=== PATIENT | male | born 1955 | race Caucasian/White ===

== ENCOUNTER 2016-10-10 18:12 | Inpatient (IN) | payer MEDICARE ==
[~2016-10-10] VITALS: Ht 175.3 cm; Wt 88.9 kg
[~2016-10-10 18:12] MED LIST: ASPIRIN EC81 MG PO; ATROVENT (00.2 MG/ML NEB; BACLOFEN 10MG T10 MG PO; CERTAGEN1 EACH PO; DULCOLAX5 MG PO; FEOSOL325 MG PO; FLOMAX 0.4 MG0.4 MG PO; KEPPRA500 MG PO; LAXATIVE SUPPOS10 MG PR; LOPRESSOR25 MG PO; MAALOX ADVANCE355 ML PO; MILK OF MA400 MG/5 M PO; MUCINEX 600MG600 MG PO; NEURONTIN300 M1 PO; OXY-IR 5MG5 MG PO; PAXIL40 MG PO; PLAVIX75 MG PO; PRAVACHOL20 MG PO; PRILOSEC20 MG PO; PROVENTIL HFA6.7 GM INH; SENOKOT-S TABL1 EACH PO; XARELTO10 MG PO; XOPENEX (11.25 MG/3 NEB; [UNRECOGNIZED DRUG - OTHER]
[2016-10-10 21:46] LABS: BASOPHIL 0.4 % (0-2); EOSINOPHIL 0.4 % (0-5); HCT 40.5 % (42.0-52.0); LYMPHOCYTE 6.8 % (15-48); MCH 31.3 pg (25.0-31.0); MCHC 34.6 g/dL (32.0-36.0); MCV 90.6 fL (78.0-100.0); MONOCYTE 3.7 % (0-12); NEUTROPHIL 88.7 % (41-80); PLT 174 K/uL (150-400); RBC 4.47 M/uL (4.70-6.00); RDW 14.2 % (11.5-14.0); WBC 4.8 K/uL (4.0-10.5)
[2016-10-10 22:12] LABS: INR 1.03 (0.9-1.2); PROTHROMBIN TIME 13.1 SECONDS (11.7-14.0); PTT 24.7 SECONDS (23.2-31.4)
[2016-10-10 22:28] LABS: LACTIC ACID 2.8 mmol/L (0.5-2.2)
[2016-10-10 22:39] LABS: CREATININE 1.1 mg/dL (0.7-1.2)
[2016-10-10 22:40] LABS: BILIRUBIN - TOTAL 0.3 mg/dL (0.1-1.0); GLOBULIN (CALCULATION) 2.4 g/dL (2.2-4.2); POTASSIUM 3.1 mmol/L (3.5-5.1); TOTAL PROTEIN 6.4 g/dL (6.4-8.3)
[2016-10-10 23:20] LABS: MYOGLOBIN 46 ng/mL (26-65); PRO-BNP 109 pg/mL (0-125); TROPONIN T < 0.010 ng/mL
[2016-10-10 23:46] LABS: BILIRUBIN NEGATIVE (NEGATIVE); BLOOD NEGATIVE Ery/uL (NEGATIVE); CLARITY CLEAR (CLEAR); COLOR YELLOW (YELLOW); GLUCOSE (U) NORMAL (NORMAL); KETONE (U) NEGATIVE (NEGATIVE); LEUKOCYTES NEGATIVE Leu/uL (NEGATIVE); NITRITE NEGATIVE (NEGATIVE); PROTEIN NEGATIVE (NEGATIVE); SPECIFIC GRAVITY 1.025 (1.001-1.030)
[2016-10-11 03:52] LABS: HCT 38.9 % (42.0-52.0); HGB 13.1 g/dl (13.2-18.0); MCH 30.8 pg (25.0-31.0); MCHC 33.7 g/dL (32.0-36.0); MCV 91.5 fL (78.0-100.0); MPV 9.7 fL (6.0-9.5); RBC 4.25 M/uL (4.70-6.00); RDW 14.1 % (11.5-14.0); WBC 3.7 K/uL (4.0-10.5)
[2016-10-11 05:28] LABS: CKMB 1.82 ng/mL (0.97-4.94); TROPONIN T < 0.010 ng/mL
[2016-10-11 05:29] LABS: ALBUMIN 3.8 g/dL (3.5-5.0); BILIRUBIN - TOTAL 0.2 mg/dL (0.1-1.0); GLOBULIN (CALCULATION) 2.3 g/dL (2.2-4.2); MAGNESIUM 1.65 mg/dL (1.40-2.10); POTASSIUM 4.4 mmol/L (3.5-5.1); TOTAL PROTEIN 6.1 g/dL (6.4-8.3)
[2016-10-11 09:53] LABS: CKMB 2.91 ng/mL (0.97-4.94); TROPONIN T < 0.010 ng/mL
--- NOTE | 2016-10-12 00:30 | NUR ---
OUT OF BED, PULLED IV OUT. ASSISTED TO BSC, CHANGED BED, CLEANED PT. 1:1 SITTER PROVIDED. WILL MONITOR CLOSELY. HALLUCINATING - SEEING POLICEMENJAVI.
[2016-10-12 07:38] LABS: BASOPHIL 0 % (0-2); EOSINOPHIL 0 % (0-5); HCT 37.8 % (42.0-52.0); LYMPHOCYTE 12.2 % (15-48); MCH 31.2 pg (25.0-31.0); MCHC 34.4 g/dL (32.0-36.0); MCV 90.6 fL (78.0-100.0); MONOCYTE 8.4 % (0-12); MPV 9.9 fL (6.0-9.5); NEUTROPHIL 79.4 % (41-80); PLT 190 K/uL (150-400); RBC 4.17 M/uL (4.70-6.00); RDW 14.2 % (11.5-14.0); WBC 5.3 K/uL (4.0-10.5)
[2016-10-12 07:59] LABS: ALBUMIN 3.6 g/dL (3.5-5.0); BILIRUBIN - TOTAL 0.3 mg/dL (0.1-1.0); GLOBULIN (CALCULATION) 2.4 g/dL (2.2-4.2); POTASSIUM 3.8 mmol/L (3.5-5.1)
[2016-10-13 09:08] LABS: HCT 39.7 % (42.0-52.0); HGB 13.5 g/dl (13.2-18.0); MCV 91.1 fL (78.0-100.0); MPV 9.9 fL (6.0-9.5); RBC 4.36 M/uL (4.70-6.00); RDW 14.6 % (11.5-14.0)
[2016-10-13 09:28] LABS: CREATININE 1.1 mg/dL (0.7-1.2); POTASSIUM 2.7 mmol/L (3.5-5.1)
[2016-10-14 12:24] LABS: CREATININE 0.9 mg/dL (0.7-1.2); POTASSIUM 2.9 mmol/L (3.5-5.1)
[2016-10-15 05:01] LABS: CREATININE 0.8 mg/dL (0.7-1.2)
[2016-10-15] MEDS ORDERED: HABITROL14 MG TOP (17:24)
[2016-10-15] MEDS ORDERED: HYDROCODONE-APA1 TAB PO (17:24)
[2016-10-15] MEDS ORDERED: TAMIFLU 75MG CA75 MG PO (17:25)
[2016-10-15] MEDS ORDERED: PREDNISONE 10MG10 MG PO (17:26)
[2016-10-15] MEDS ORDERED: LEVAQUIN500 MG PO (17:26)
[2017-03-12] MEDS ORDERED: XANAX0.5 MG PO (11:34)
== END 2016-10-15 14:13 | disposition home or self-care (01) | DRG 871 ==
LOC: FER 18:12 → FICU 10-11 00:30 → FMS 10-13 11:00
PROVIDERS: Emergency Medicine Emergency Medical Services; Internal Medicine; ADMIT Internal Medicine
DX: A41.9 Sepsis, unspecified organism (principal); J96.01 Acute respiratory failure with hypoxia; G93.41 Metabolic encephalopathy; J44.0 Chronic obstructive pulmonary disease with (acute) lower respiratory infection; J44.1 Chronic obstructive pulmonary disease with (acute) exacerbation; I69.354 Hemiplegia and hemiparesis following cerebral infarction affecting left non-dominant side; R65.20 Severe sepsis without septic shock; Z20.828 Contact with and (suspected) exposure to other viral communicable diseases; E87.6 Hypokalemia; R56.9 Unspecified convulsions; E78.5 Hyperlipidemia, unspecified; M54.5 Low back pain; G89.29 Other chronic pain; G62.9 Polyneuropathy, unspecified; F32.9 Major depressive disorder, single episode, unspecified; F41.9 Anxiety disorder, unspecified; J20.9 Acute bronchitis, unspecified; F17.210 Nicotine dependence, cigarettes, uncomplicated; Z96.641 Presence of right artificial hip joint; Z87.81 Personal history of (healed) traumatic fracture
CPT/HCPCS: 36415; 36600; 70450; 71010; 71020; 71275; 80048; 80053; 81003; 82550; 82553; 82803; 83605; 83735; 83874; 83880; 84484; 85025; 85610; 85730; 86140; 87040; 87088; 87804; 87899; 93005; 94640; J0456; J0692; J1956; J2060; J2405; J2930; J3360; J3370; Q9967

== ENCOUNTER 2020-08-11 04:19 | Day surgery (SDCO) | payer MEDICARE ==
[~2020-08-11 04:19] MED LIST changes: +AZITHROMYCIN250 MG PO; +CLARITIN10 MG PO; +DELTASONE20 MG PO; +HABITROL14 MG TOP; +HYDROCODON-ACE1 EAC2 PO; +HYDROCODONE-APA1 TAB PO; +KEPPRA1000 MG PO; -KEPPRA500 MG PO; +LEVAQUIN500 MG PO; +MEDROL 4MG DOSEP4 MG PO; +NARCAN4 MG INH; +NORCO 5-325 TA1 EACH PO; +PREDNISONE 10MG10 MG PO; +TAMIFLU 75MG CA75 MG PO; +TESSALON PERLE100 MG PO; +VIBRAMYCIN100 M1 PO; +VIMPAT50 MG PO; +XANAX0.5 MG PO
[2020-08-11 05:36] LABS: INR 0.97 (0.9-1.2); PROTHROMBIN TIME 12.2 SECONDS (11.4-13.6); PTT 27.3 SECONDS (22.2-34.7)
[2020-08-11 05:38] LABS: D-DIMER 0.54 ug/mLFEU (0.00-0.41)
[2020-08-11 05:43] LABS: ALBUMIN 3.8 g/dL (3.4-5.0); BILIRUBIN - TOTAL 0.7 mg/dL (0.2-1.0); BUN/CREAT RATIO (CALC) 11.6 RATIO; CREATININE 1.12 mg/dL (0.67-1.17); GLOBULIN (CALCULATION) 3.9 g/dL; POTASSIUM 4.1 mmol/L (3.5-5.1); TOTAL PROTEIN 7.7 g/dL (6.4-8.2)
[2020-08-11 05:49] LABS: LACTIC ACID 1.6 mmol/L (0.4-1.9)
[2020-08-11 05:52] LABS: PRO-BNP 38 pg/mL (<125)
[2020-08-11 05:55] LABS: BASOPHIL 0.5 % (0-2); EOSINOPHIL 1.8 % (0-5); HGB 15.5 g/dl (13.2-18.0); LYMPHOCYTE 16.6 % (15-48); MCHC 33.7 g/dL (32.0-36.0); MCV 103.8 fL (78.0-100.0); MONOCYTE 7.3 % (0-12); MPV 9.7 fL (6.0-9.5); NEUTROPHIL 73.4 % (41-80); NRBC 0; PLT 177 K/uL (150-400); RBC 4.43 M/uL (4.70-6.00); RDW 12.9 % (11.5-14.0); WBC 11.1 K/uL (4.0-10.5)
[2020-08-11 06:05] LABS: CORONAVIRUS 2019 SARS-COV-2 NEGATIVE (NEGATIVE); INFLUENZA A NAA NEGATIVE (NEGATIVE)
[2020-08-11] MEDS ORDERED: ALPRAZOLAM1 MG PO (08:40)
[2020-08-11] MEDS ORDERED: PROTONIX 40MG T40 MG PO (08:44)
[2020-08-11] MEDS ORDERED: BACLOFEN 10MG T10 MG PO (08:45)
[2020-08-11] MEDS ORDERED: LEVETIRACETAM500 MG PO (08:45)
--- NOTE | 2020-08-11 10:17 | NUR ---
PT. IS OBS. PLEASE CONSIDER INPT OR D/C. THANKS
[2020-08-12] MEDS ORDERED: PREDNISONE 20MG20 MG PO (10:44)
== END 2020-08-12 11:20 | disposition home or self-care (01) ==
LOC: FER 04:19 → FMS 08:05
PROVIDERS: Emergency Medicine; ADMIT Internal Medicine
DX: J44.1 Chronic obstructive pulmonary disease with (acute) exacerbation (principal); I69.354 Hemiplegia and hemiparesis following cerebral infarction affecting left non-dominant side; I11.0 Hypertensive heart disease with heart failure; I50.9 Heart failure, unspecified; K21.9 Gastro-esophageal reflux disease without esophagitis; K44.9 Diaphragmatic hernia without obstruction or gangrene; F17.210 Nicotine dependence, cigarettes, uncomplicated; M51.36 Other intervertebral disc degeneration, lumbar region; Z87.81 Personal history of (healed) traumatic fracture; Z98.890 Other specified postprocedural states; Z96.641 Presence of right artificial hip joint; Z80.0 Family history of malignant neoplasm of digestive organs; Z20.822 Contact with and (suspected) exposure to COVID-19; Z86.69 Personal history of other diseases of the nervous system and sense organs; R59.0 Localized enlarged lymph nodes
CPT/HCPCS: 36415; 36600; 71045; 71275; 80053; 82803; 83605; 83880; 84484; 85025; 85379; 85610; 85730; 87040; 93005; 94640; 94667; 94668; G0378; J1650; J2920; J2930; Q9967; U0002

== ENCOUNTER 2021-01-25 19:22 | Emergency (ER) | payer MEDICARE ==
[~2021-01-25 19:22] MED LIST changes: +ALPRAZOLAM1 MG PO; +LEVETIRACETAM500 MG PO; +PREDNISONE 20MG20 MG PO; +PROTONIX 40MG T40 MG PO
[2021-01-25 20:37] LABS: BASOPHIL 1.1 % (0-2); HCT 42.7 % (42.0-52.0); HGB 15.1 g/dl (13.2-18.0); LYMPHOCYTE 35.6 % (15-48); MCH 34.6 pg (25.0-31.0); MCHC 35.4 g/dL (32.0-36.0); MCV 97.9 fL (78.0-100.0); MONOCYTE 7.5 % (0-12); MPV 9.3 fL (6.0-9.5); NEUTROPHIL 52.6 % (41-80); NRBC 0; PLT 148 K/uL (150-400); RBC 4.36 M/uL (4.70-6.00); RDW 12.3 % (11.5-14.0); WBC 5.7 K/uL (4.0-10.5)
[2021-01-25 20:40] LABS: ALBUMIN 3.6 g/dL (3.4-5.0); BILIRUBIN - TOTAL 0.7 mg/dL (0.2-1.0); BUN/CREAT RATIO (CALC) 8.8 RATIO; CREATININE 1.36 mg/dL (0.67-1.17); GLOBULIN (CALCULATION) 3.5 g/dL; POTASSIUM 3.7 mmol/L (3.5-5.1); TOTAL PROTEIN 7.1 g/dL (6.4-8.2)
[2021-01-25 20:45] LABS: LACTIC ACID 1.3 mmol/L (0.4-1.9)
[2021-01-25 20:50] LABS: PRO-BNP 43 pg/mL (<125)
[2021-01-25 21:15] LABS: CORONAVIRUS 2019 SARS-COV-2 NEGATIVE (NEGATIVE); INFLUENZA A NAA NEGATIVE (NEGATIVE)
[2021-01-26] MEDS ORDERED: BROMFED DM COU473 ML PO (02:05)
[2021-01-26] MEDS ORDERED: MEDROL 4MG DOSEP4 MG PO (02:05)
[2021-01-26] MEDS ORDERED: LEVAQUIN750 MG PO (02:05)
== END 2021-01-26 02:37 | disposition home or self-care (01) ==
LOC: FER 19:22
PROVIDERS: Emergency Medicine Emergency Medical Services
DX: J20.9 Acute bronchitis, unspecified (principal); J44.0 Chronic obstructive pulmonary disease with (acute) lower respiratory infection; J44.1 Chronic obstructive pulmonary disease with (acute) exacerbation; J44.9 Chronic obstructive pulmonary disease, unspecified; F17.210 Nicotine dependence, cigarettes, uncomplicated; Z86.73 Personal history of transient ischemic attack (TIA), and cerebral infarction without residual deficits; Z99.81 Dependence on supplemental oxygen; Z20.822 Contact with and (suspected) exposure to COVID-19
CPT/HCPCS: 36415; 36600; 71045; 71275; 80053; 82803; 83605; 83880; 84145; 84484; 85025; 87040; 87070; 87077; 87186; 87205; 93005; 94640; 94664; A4216; J0696; J2930; J7030; Q9967; U0002